=== PATIENT | female | born 1975 ===

== ENCOUNTER 2016-07-28 16:49 | Emergency (ER) | payer BC ==
[~2016-07-28] VITALS: Ht 162.6 cm; Wt 55.3 kg
--- NOTE | 2016-07-28 17:40 | NUR ---
PT CAME FROM WORK, VSS. HX OF SVT/MITRAL PROBLEM. PT STATES, PT WAS WALKING. THEN SUDDENLY FELT A HEADACHE WHICH SHE STATES, SHES BEEN FEELING "STRESSED" AT WORK. SLIGHTLY ANXIOUS. PT DENIES CP/SO, N/V AT THIS TIME. WCTM PT. WAITING FOR FURTHER PLAN OF CARE
[2016-07-28] MEDS ORDERED: IV NORMAL SALINE 1000 ML BAG IV ONE (19:15)
[2016-07-28 19:16] LABS: BASOPHILS % (AUTO) 0.3 % (0.0-2.0); EOSINOPHILS # (AUTO) 0.1 K/uL (0.0-0.7); EOSINOPHILS % (AUTO) 1.2 % (0.0-7.0); HEMATOCRIT 41.7 % (37.0-47.0); HEMOGLOBIN 14.1 g/dL (12.0-16.0); LYMPHOCYTES % (AUTO) 23.4 % (20.5-51.5); MEAN CORPUSCULAR HEMOGLOBIN 30.8 uug (27.0-31.0); MEAN CORPUSCULAR HGB CONC 34 g/dL (32.0-37.0); MEAN CORPUSCULAR VOLUME 91.2 fL (81.0-99.0); MONOCYTES # (AUTO) 0.4 K/uL (0.1-1.30); MONOCYTES % (AUTO) 4.9 % (0.0-11.0); NEUTROPHILS # (AUTO) 6.2 K/uL (1.8-8.9); NEUTROPHILS % (AUTO) 70.2 % (38.5-71.5); PLATELET COUNT (AUTO) 211 K/uL (150-450); RED BLOOD CELL COUNT(AUTO) 4.57 MIL/uL (4.20-5.40); RED CELL DISTRIBUTION WIDTH 12.1 % (11.5-14.5); WHITE BLOOD COUNT (AUTO) 8.7 K/uL (4.0-11.2)
[2016-07-28 19:27] LABS: CALCIUM 8.9 mg/dL (8.5-10.1); CREATININE 0.7 mg/dL (0.6-1.3)
[2016-07-28] MEDS ORDERED: IV NORMAL SALINE 250 ML IV ONE (19:46)
[2016-07-28] MEDS ORDERED: NORMAL SALINE FLUSH 10 ML DISP.SYRIN ONE (19:46)
[2016-07-28] MEDS ORDERED: IOHEXOL 350 100 ML INFUS..BTL ONE (19:46)
--- NOTE | 2016-07-28 21:43 | NUR ---
Patient discharged to home in stable conditon. Written and verbal after care instructions given. Patient verbalizes understanding of instructions.
== END 2016-07-28 21:47 | disposition home or self-care (01) ==
LOC: ER 16:51
DX: M54.81 Occipital neuralgia (principal); R51 Headache; R42 Dizziness and giddiness
CPT/HCPCS: 36415; 70496; 70498; 80048; 84484; 84703; 85025; 85651; 85730; 93005; 96360; 96361; 99285; A4663; J3490; J7030; J7050; Q9967; 70030-TC